=== PATIENT | male | born 1985 | race Caucasian/White ===

== ENCOUNTER 2024-03-20 08:21 | Emergency (ER) | payer OTHER, SELFPAY ==
--- NOTE | ~2024-03-20 | US_ITS ---
EXAMINATION: US VENOUS ULTRASOUND WITH DOPPLER LOWER EXTREMITY, LEFT CLINICAL INFORMATION: Calf pain COMPARISON: None available. TECHNIQUE: Ultrasound of the deep veins is performed from the hip to the calf with compression sonography and color and pulse Doppler assessment. Spectral analysis with color-flow imaging is performed. FINDINGS: There is normal venous compression and respiratory variation and augmented flow. The visualized common femoral vein, superficial femoral vein, profunda femoral vein, popliteal vein, and posterior tibial and peroneal veins show no evidence of deep venous thrombosis. Ultrasound of the area of pain indicated by the patient in the mid posterior left calf demonstrates no sonographic abnormality. US/US venous duplex LE LT IMPRESSION: No DVT demonstrated in the left lower extremity.
--- NOTE | ~2024-03-20 | XR_ITS ---
EXAMINATION: XR KNEE, LEFT CLINICAL INFORMATION: Pain/popping sensation to left knee while running COMPARISON: Same-day venous ultrasound of the left lower extremity TECHNIQUE: Four views of the left knee. FINDINGS: No fracture or joint effusion. Alignment is anatomic. Joint spaces are maintained. No abnormal soft tissue calcification. XR/XR knee LT 4V IMPRESSION: No bony abnormality.
[2024-03-20 08:25] VITALS: BP 119/69; PULSE 90; RESP 16; TEMP 36.1; O2SAT 97; BMI 31.9
--- NOTE | 2024-03-20 09:01 | ED.LOWEXIN ---
HPI - Extremity Injury (Lower) General Chief Complaint: Extremity Injury, Lower Stated Complaint: L knee/leg pain Time Seen by Provider: 03/20/24 08:54 Source: patient and RN notes reviewed Mode of arrival: ambulatory Limitations: no limitations History of Present Illness ED Provider: Liliane Joseph PA-C HPI Narrative: This is a 38-year-old male, with a history of hypertension, hypothyroidism, and sjogren's syndrome who presents emergency department with complaints of left knee and left calf pain. Pt reports that he was running during a physical fitness test and developed sharp pain in center of his calf, and he continued to run however states that he then developed a sharp sensation in his left knee. He ultimately had to limp and not complete this physical fitness test. Reporting increased tightness radiating to knee with popping sensation to left side of his knee. Reporting hx of knee problems in the past, several years ago without any findings. No recent travel, surgeries, hospitalizations, clotting disorder, hx of blood clots. No other complaints or concerns at this time. MD complaint: knee injury Onset (ago): hour(s) Place: street/outdoors Severity: moderate Relieving factors: nothing Exacerbating factors: weight bearing, movement and palpation Associated symptoms: snap/pop sensation and able to partially bear weight Other symptoms: none Related Data Allergies Allergy/AdvReac Type Severity Reaction Status Date / Time No Known Allergies Allergy Verified 03/20/24 08:28 Review of Systems Review of Systems: Yes all other systems are reviewed and are negative Constitutional: Constitutional: Reports as per [facility] Social History Social History Advance Directives: No Advance Directives Information Provided: No Do you have a plan to hurt others: No Plan Physical Exam Vital Signs: Vital Signs: Last Vital Signs Temp 96.9 F 03/20/24 08:25 Pulse 90 03/20/24 08:25 Resp 16 03/20/24 08:25 BP 119/69 03/20/24 08:25 Pulse Ox 97 03/20/24 08:25 O2 Del Method Room Air 03/20/24 08:25 BMI result Body Mass Index 31.9 Const: General: cooperative, comfortable and no acute distress Orientation/consciousness: patient oriented x3 Limitations: no limitations HEENT: Head: Yes normal to inspection, Yes normocephalic and Yes atraumatic Ears: hearing grossly normal bilaterally General nose exam: Normal external nose present Face and sinus: Yes normal facial exam Mouth: Normal oral and palatal mucosa present, oropharynx normal and moist mucous membranes Throat: Yes posterior oropharynx normal Eyes: General: appearance normal, both eyes and all related structures Eyelids: Yes eyelids normal Conjunctivae: conjunctivae normal Sclerae: sclerae normal Pupils: Equal, round and reactive pupils present EOM: EOMs intact bilaterally Neck: Neck: Yes normal visual inspection, Yes full ROM and Yes no lymphadenopathy Lymphatic: no lymphadenopathy noted Chest: Chest palpation & inspection: normal inspection of the chest Resp: Effort & Inspection: normal respiratory effort and able to speak in complete sentences Auscultation: clear to auscultation bilaterally, no crackles, no rales, no rhonchi and no wheezes Cardio: Rate: regular rate Rhythm: regular rhythm Heart sounds: S1 normal heart sound present and S2 normal heart sound present GI: Inspection: Yes normal to inspection Skin: General skin exam: no rashes or lesions noted Trauma: no lacerations or abrasions Wounds: no wounds Neuro: General: patient oriented x3 and moves all extremities Cranial nerves: Yes Equal, round and reactive pupils present Extrem: Other: Left knee without any obvious bony deformities. Mild TTP overlying the lateral joint line. No joint laxity. Negative anterior/posterior drawer test. DP pulse 2+. Left calf with TTP without any palpable masses. Extremity is well perfused General: Yes normal to inspection Right upper extremity: normal to inspection Left upper extremity: normal to inspection Right lower extremity: normal to inspection Left lower extremity: normal to inspection Course Reevaluation(s) Reevaluation #1: Ultrasound revealing no evidence of DVT or cyst. X-ray of the left knee unremarkable. Discussed finding with patient, he understands agrees with plan. Declining crutches at this time. Patient stable for discharge. Time: 10:58 Medical Decision Making Medical Decision Making MDM Narrative: This is a [id number] who presents to the ER with a complaint of left knee pain and left calf pain. He was running and suddenly developed sharp pain in his left calf, and into his left knee. He denied falling to the ground or LOC. He has been able to partially bear weight with tenderness. On arrival, vital signs within normal limits. He does have TTP overlying left lateral joint line and left calf. Milena's tendon is intact. DDX including knee strain, sprain, calf muscle spasm, DVT, Bowden's cyst. Plan: Knee xray, Left LE US Differential Diagnosis Differential Diagnoses: The differential diagnosis associated with the presentation includes See above Radiology Impression Discussion of test interpretation with radiology: I have reviewed the radiologist's reading. Radiologist Impression: CLINICAL INFORMATION: Calf pain COMPARISON: None available. TECHNIQUE: Ultrasound of the deep veins is performed from the hip to the calf with compression sonography and color and pulse Doppler assessment. Spectral analysis with color-flow imaging is performed. FINDINGS: There is normal venous compression and respiratory variation and augmented flow. The visualized common femoral vein, superficial femoral vein, profunda femoral vein, popliteal vein, and posterior tibial and peroneal veins show no evidence of deep venous thrombosis. Ultrasound of the area of pain indicated by the patient in the mid posterior left calf demonstrates no sonographic abnormality. US/US venous duplex LE LT IMPRESSION: No DVT demonstrated in the left lower extremity. Dictated By: Jessica Delong MD EXAMINATION: XR KNEE, LEFT CLINICAL INFORMATION: Pain/popping sensation to left knee while running COMPARISON: Same-day venous ultrasound of the left lower extremity TECHNIQUE: Four views of the left knee. FINDINGS: No fracture or joint effusion. Alignment is anatomic. Joint spaces are maintained. No abnormal soft tissue calcification. XR/XR knee LT 4V IMPRESSION: No bony abnormality. Dictated By: Jessica Delong MD Discharge Plan Discharge Clinical Impression: Strain of left calf muscle, Sprain of left knee Patient Disposition: Home, Self-Care Instructions: Knee Sprain (ED), Leg Sprain (ED) Additional Instructions: You were seen in the emergency department due to injury to your calf and knee. Your ultrasound of your calf does not show any evidence of blood clot or Bowden's cyst. Your x-ray does not show any bony abnormalities. You likely strained some of the muscles and or ligaments to your knee and calf causing you to have this pain. Please rest, ice, elevate, and only perform activities as tolerated. If your pain worsens, discontinue any activity that you are doing. I am recommending that you follow-up with your primary care physician as further management through an orthopedic team may be warranted. Alternate between ibuprofen 600 mg every 6 hours as well as Tylenol 650mg every 8 hours as needed for pain and symptoms. If any new or worsening symptoms occur including but not limited to worsening pain, redness, swelling, decreased sensation in your leg, chest pain, shortness of breath, please seek emergent care. Stand Alone Forms: Work/School Release Print Language: Korean
[2024-03-20 11:44] VITALS: BP 119/69; PULSE 90; RESP 16; TEMP 36.1; O2SAT 97
== END 2024-03-20 11:45 | disposition home or self-care (01) ==
PROVIDERS: Emergency Provider Student in an Organized Health Care Education/Training Program
DX: S86.912A Strain of unspecified muscle(s) and tendon(s) at lower leg level, left leg, initial encounter (principal); S83.92XA Sprain of unspecified site of left knee, initial encounter; R60.0 Localized edema; M79.605 Pain in left leg; X58.XXXA Exposure to other specified factors, initial encounter; Y93.02 Activity, running; Y92.838 Other recreation area as the place of occurrence of the external cause; Y99.8 Other external cause status
CPT/HCPCS: 73564; 93971; 99284